=== PATIENT | male | born 1985 | race Caucasian/White ===

== ENCOUNTER 2017-12-14 17:49 | Emergency (ER) | payer MEDICAID ==
[~2017-12-14] VITALS: Ht 170.2 cm; Wt 81.8 kg
[2017-12-14] MEDS ORDERED: PERCT10 PO (17:51)
[2017-12-14 18:50] VITALS: BP 137/88
[2017-12-14 18:50] LABS: INFLUENZA TYPE A NEGATIVE FOR TYPE A (NEGATIVE); INFLUENZA TYPE B POSITIVE FOR TYPE B (NEGATIVE)
[2017-12-14] MEDS ORDERED: IBUPROFEN 800 MG TABLET PO ONE (19:15)
== END 2017-12-14 19:26 | disposition home or self-care (01) ==
LOC: EMS 17:53
DX: J11.1 Influenza due to unidentified influenza virus with other respiratory manifestations (principal); J45.909 Unspecified asthma, uncomplicated; R11.12 Projectile vomiting; F12.10 Cannabis abuse, uncomplicated
CPT/HCPCS: 87804; 99284